=== PATIENT | female | born 1975 | race African-American/Black ===

== ENCOUNTER 2016-12-31 07:26 | Emergency (ER) | payer MEDICAID ==
[~2016-12-31] VITALS: Ht 162.6 cm; Wt 58.0 kg
[~2016-12-31 07:26] MED LIST: FLUO20CA33 PO; IBUP-2029 PO; METR500T PO
[2016-12-31 08:38] LABS: CLARITY URINE CLOUDY (CLEAR); COLOR URINE YELLOW (YELLOW); GLUCOSE URINE 3+ (NEGATIVE); KETONES URINE 1+ (NEGATIVE); LEUKOCYTE ESTERASE URINE 2+ (NEGATIVE); NITRITE URINE POSITIVE (NEGATIVE); OCCULT BLOOD URINE 1+ (NEGATIVE); PROTEIN URINE TRACE (NEGATIVE); SPECIFIC GRAVITY URINE 1.038 (1.005-1.030); UROBILINOGEN URINE 0.2 E.U./dL (0.2-1.0)
[2016-12-31] MEDS ORDERED: KETOROLAC 30MG/ML VIAL IV STA (08:41)
[2016-12-31] MEDS ORDERED: VISCOUS LIDOCAINE 2% 15 ML UDC PO STA (08:41)
[2016-12-31] MEDS ORDERED: SODIUM CHLORIDE 0.9% 1,000 ML IV ONE (08:41)
[2016-12-31] MEDS ORDERED: ONDANSETRON HCL 4MG/2ML VIAL IV STA (08:41)
[2016-12-31] MEDS ORDERED: DICYCLOMINE 10 MG/5 ML ORAL SYR PO STA (08:41)
[2016-12-31] MEDS ORDERED: MAGNESIUM/ALUMINUM HYDROXIDE/SIMETHICONE 30ML UDC PO STA (08:41)
[2016-12-31 09:03] LABS: BASOPHILS % 0.4 % (0.0-2.0); EOSINOPHILS % 1.2 % (0.0-5.0); HEMATOCRIT. 36.5 % (36.0-48.0); HEMOGLOBIN. 12.3 g/dL (12.0-16.0); LYMPHOCYTES % 25.1 % (20.0-50.0); MEAN CORPUSCULAR HEMOGLOBIN 31.1 pg (28.0-32.0); MEAN CORPUSCULAR VOLUME 92.1 fL (81.0-99.0); MEAN PLATELET VOLUME 10.6 fl (7.4-10.4); MONOCYTES % 12.7 % (2.0-8.0); NEUTROPHILS % 60.6 % (40.0-76.0); PLATELET 159 x1000/uL (130-400); RED BLOOD CELL COUNT 3.97 mill/uL (4.2-5.4); RED CELL DISTRIBUTION WIDTH 12.9 % (11.6-14.6)
[2016-12-31 09:10] LABS: PROTHROMBIN TIME 10.1 sec (9.4-11.6)
[2016-12-31 09:17] LABS: CARBON DIOXIDE 27 mEq/L (21-32); CHLORIDE 105 mEq/L (98-107)
[2016-12-31 10:15] VITALS: BP 110/64
== END 2016-12-31 11:59 | disposition home or self-care (01) ==
LOC: ER 08:14
DX: N39.0 Urinary tract infection, site not specified (principal); R19.7 Diarrhea, unspecified; E11.9 Type 2 diabetes mellitus without complications
CPT/HCPCS: 36415; 80053; 81001; 81025; 83690; 85025; 85610; 96361; 96374; 96375; 99284; J1885; J2405; J7030; Z7610